=== PATIENT | male | born 1970 | race African-American/Black ===

== ENCOUNTER 2020-09-18 10:26 | Outpatient (CLI) | payer BC | END 2020-09-18 10:27 | disposition home or self-care (01) | LOC: LAB 10:26 | PROVIDERS: ATTEND Internal Medicine | DX: R73.03 Prediabetes (principal) | CPT/HCPCS: 36415; 83036 ==

== ENCOUNTER 2020-12-03 09:31 | Outpatient (CLI) | payer BC | END 2020-12-03 09:32 | disposition home or self-care (01) | LOC: US 09:31 | PROVIDERS: ATTEND Internal Medicine | DX: E04.1 Nontoxic single thyroid nodule (principal) | CPT/HCPCS: 76536 ==

== ENCOUNTER 2021-05-07 10:16 | Outpatient (CLI) | payer BC ==
[2021-05-07 11:08] LABS: Basophils # (Auto) 0.1 K/mm3 (0.0-0.1); Basophils % (Auto) 0.7 % (0.0-1.8); Eosinophils # (Auto) 0.2 K/mm3 (0.0-0.4); Eosinophils % (Auto) 2.4 % (0.0-4.3); Hemoglobin 14.8 gm/dl (11.8-15.2); Lymphocytes # (Auto) 1.5 K/mm3 (1.2-5.4); Lymphocytes % (Auto) 19.6 % (13.4-35.0); Mean Corpuscular HGB Conc 34 % (32-34); Mean Corpuscular Volume 93 fl (84-94); Monocytes # (Auto) 0.7 K/mm3 (0.0-0.8); Monocytes % (Auto) 9.4 % (0.0-7.3); Platelet Count 194 K/mm3 (140-440); Red Blood Count 4.74 M/mm3 (3.65-5.03); Red Cell Distribution Width 13.6 % (13.2-15.2)
[2021-05-07 11:30] LABS: Alanine Aminotransferase 24 units/L (7-56); Albumin 4.4 g/dL (3.9-5); Blood Urea Nitrogen 25 mg/dL (9-20); Calcium 9.7 mg/dL (8.4-10.2); Chol/HDL Ratio 4.02 %; HDL Cholesterol 34 mg/dL (40-59); Hemolysis Index 5; LDL Cholesterol,Direct 97 mg/dL (50-130)
[2021-05-07 11:31] LABS: BUN/Creatinine Ratio 42
[2021-05-07 11:38] LABS: Bilirubin,Urine NEG (Negative); Blood,Urine NEG (Negative); Color,Urine Yellow (Yellow); Mucus,Urine 2+ /HPF; Protein,Urine <15 mg/dL mg/dL (Negative); Urobilinogen,Urine < 2.0 mg/dL (<2.0); WBC,Urine < 1.0 /HPF (0.0-6.0)
[2021-05-11 13:03] LABS: Vitamin D, 25-OH, D2 <4 ng/mL
== END 2021-05-07 10:17 | disposition home or self-care (01) ==
LOC: LAB 10:16
PROVIDERS: ATTEND Internal Medicine
DX: Z00.00 Encounter for general adult medical examination without abnormal findings (principal); Z13.220 Encounter for screening for lipoid disorders; E04.1 Nontoxic single thyroid nodule; R73.03 Prediabetes; N39.0 Urinary tract infection, site not specified; E55.9 Vitamin D deficiency, unspecified
CPT/HCPCS: 36415; 80053; 80061; 81001; 82306; 84443; 85025

== ENCOUNTER 2021-10-15 13:39 | Outpatient (CLI) | payer BC ==
[2021-10-15 14:56] LABS: Free T4 (Free Thyroxine) 1.19 ng/dL (0.76-1.46)
== END 2021-10-15 13:40 | disposition home or self-care (01) ==
LOC: LAB 13:39
DX: L21.9 Seborrheic dermatitis, unspecified (principal); H02.831 Dermatochalasis of right upper eyelid; H02.834 Dermatochalasis of left upper eyelid; H05.89 Other disorders of orbit; H40 Glaucoma
CPT/HCPCS: 36415; 84439; 84443; 86800

== ENCOUNTER 2021-12-02 08:57 | Outpatient (CLI) | payer BC | END 2021-12-02 08:58 | disposition home or self-care (01) | LOC: LAB 08:57 | PROVIDERS: ATTEND Internal Medicine | DX: R73.03 Prediabetes (principal); E04.1 Nontoxic single thyroid nodule | CPT/HCPCS: 36415; 83036; 84443 ==

== ENCOUNTER 2022-06-19 07:49 | Outpatient (CLI) | payer BC ==
[2022-06-19 12:23] LABS: Basophils # (Auto) 0.1 K/mm3 (0.0-0.1); Basophils % (Auto) 1.1 % (0.0-1.8); Eosinophils # (Auto) 0.2 K/mm3 (0.0-0.4); Eosinophils % (Auto) 2.6 % (0.0-4.3); Hematocrit 43.2 % (35.5-45.6); Hemoglobin 14.4 gm/dl (11.8-15.2); Lymphocytes # (Auto) 1.8 K/mm3 (1.2-5.4); Lymphocytes % (Auto) 25.5 % (13.4-35.0); Mean Corpuscular HGB Conc 33 % (32-34); Mean Corpuscular Volume 94 fl (84-94); Monocytes # (Auto) 0.6 K/mm3 (0.0-0.8); Monocytes % (Auto) 8.7 % (0.0-7.3); Platelet Count 219 K/mm3 (140-440); Red Blood Count 4.62 M/mm3 (3.65-5.03); Red Cell Distribution Width 14.1 % (13.2-15.2)
[2022-06-19 12:37] LABS: Alanine Aminotransferase 25 units/L (7-56); Albumin 4.4 g/dL (3.9-5); BUN/Creatinine Ratio 31; Blood Urea Nitrogen 25 mg/dL (9-20); Calcium 9.4 mg/dL (8.4-10.2); Chol/HDL Ratio 4.68 %; HDL Cholesterol 32 mg/dL (40-59); Hemolysis Index 12; LDL Cholesterol,Direct 103 mg/dL (50-130)
[2022-06-22 14:43] LABS: Vitamin D, 25-OH, D2 <4 ng/mL
== END 2022-06-19 07:50 | disposition home or self-care (01) ==
LOC: LABHHL 07:49 → LAB 07:49 → LABHHL 07:50
PROVIDERS: ATTEND Internal Medicine
DX: Z12.5 Encounter for screening for malignant neoplasm of prostate (principal); Z00.00 Encounter for general adult medical examination without abnormal findings; I10 Essential (primary) hypertension; E04.1 Nontoxic single thyroid nodule; E55.9 Vitamin D deficiency, unspecified; E66.9 Obesity, unspecified; R73.03 Prediabetes
CPT/HCPCS: 36415; 80053; 80061; 82306; 83036; 84153; 84443; 85025